=== PATIENT | female | born 1975 | race Caucasian/White ===

== ENCOUNTER → 2016-08-29 19:37 | Outpatient (CLI) | payer OTHER | END | disposition home or self-care (01) | LOC: D.SLEEP 19:37 | DX: G47.33 Obstructive sleep apnea (adult) (pediatric) (principal) ==

== ENCOUNTER → 2016-09-20 20:12 | Outpatient (CLI) | payer OTHER | END | disposition home or self-care (01) | LOC: D.SLEEP 09-06 20:00 | DX: G47.33 Obstructive sleep apnea (adult) (pediatric) (principal) ==

== ENCOUNTER → 2017-01-23 12:12 | Outpatient (CLI) | payer MEDICAID ==
--- NOTE | 2017-01-23 13:47 | NUR ---
Nutrition education for bariatric surgery: S: Pt states she has been heavy all her adult life. Her lowest weight as an adult was ~200# and her highest weight eas 330#. Pt has depression and uses food to cope with stress. Pts go to food is [place], chips, dip. Pt has 6 year old twin girls and wants to get healthy for them. Pt was just recently diagnosed with DMT2. Pt has been working out in her backyard above ground poor most days by running laps. Pt states her sister and [id number] had bariatric surgery ~6 months ago and she is watching their progress and learing about what to expect from surgery. O: 41 year old female Dx: Morbid obesity PMH: DMT2, HTN, depression Ht: 5'5" Wt: 286# IBW: 125# +/-10% BMI: 47.6 A: Pt appears to be very informed about what to expect after bariatric surgery. Pt has seen her sister and [id number]'s progress and knows it is not going to be easy. Reviewed pre/post of diet; discussed meal size; pouch stretching; no carbonation; no sweets, fried foods, alcohol; reviewed sample menus; supplements; protein intake; liquids between meals. Pt with good understanding of information provided. RDN feels pt is very informed about what to expect after surgery; RDN feels pt is ready to make the necessary lifestyle changes needed to be successful with long-term weight loss after surgery. P: Provide pt with printed diet information and RDN name and phone number. RDN will be available if needed. Thank you for the consult.
== END ==
LOC: D.FANS 12:12
DX: Z01.818 Encounter for other preprocedural examination (principal)

== ENCOUNTER → 2017-05-09 08:44 | Outpatient (CLI) | payer MEDICARE | END | disposition home or self-care (01) | LOC: D.RT 08:44 | DX: J18.9 Pneumonia, unspecified organism (principal) ==

== ENCOUNTER → 2017-06-21 13:01 | Outpatient (CLI) | payer MEDICARE ==
[~2017-06-21 13:01] MED LIST: BUSPAR10 MG PO; ELAVIL10 MG PO; GLUCOPHAGE500 MG PO; KLONOPIN0.5 MG PO; LAMICTAL100 MG PO; LISINOPRIL-HCTZ1 T13 PO; NEURONTIN 300300 MG PO; NORCO 7.5/325 T1 TA1 PO; PAROXETINE HCL10 MG PO; PHENERGAN25 M1 PO; ZOFRAN ODT4 MG/UDTAB PO
[2017-08-01 18:03] VITALS: BMI 48.6
== END | disposition home or self-care (01) ==
LOC: D.RAD 13:01
DX: E66.2 Morbid (severe) obesity with alveolar hypoventilation (principal)

== ENCOUNTER 2017-07-04 06:56 | Day surgery (SDC) | payer MEDICARE ==
[~2017-07-04] VITALS: Ht 165.1 cm; Wt 138.6 kg
[2017-07-04 07:19] LABS: HEMATOCRIT 38.5 % (36.0-48.0); HEMOGLOBIN 12.2 g/dL (12-16); MCH 27.4 pg (26.0-34.0); MCHC 31.7 g/dL (31.0-37.0); MCV 86.3 fL (80.0-100.0); RBC 4.46 10x6/uL (4.00-5.40); RDW 13.8 % (11.5-14.5); WBC 7.8 10x3/uL (4.8-10.8)
[2017-07-04] MEDS ORDERED: PAROXETINE HCL10 MG PO (07:26)
[2017-07-04] MEDS ORDERED: NEURONTIN 300300 MG PO (07:27)
[2017-07-04] MEDS ORDERED: KLONOPIN0.5 MG PO (07:27)
[2017-07-04] MEDS ORDERED: LISINOPRIL-HCTZ1 T13 PO (07:28)
[2017-07-04] MEDS ORDERED: GLUCOPHAGE500 MG PO (07:28)
[2017-07-04] MEDS ORDERED: BUSPAR10 MG PO (07:29)
[2017-07-04] MEDS ORDERED: LAMICTAL100 MG PO (07:29)
[2017-07-04] MEDS ORDERED: ELAVIL10 MG PO (07:29)
[2017-07-04 07:38] VITALS: BP 163/84; Ht 165.1 cm; Wt 138.6 kg
[2017-07-04 07:44] LABS: HCG URINE NEGATIVE (NEGATIVE)
[2017-07-04 08:00] LABS: CALC OSMOLALITY 280 mosm/kg (275-300); CALCIUM 8.6 mg/dL (8.5-10.1); CARBON DIOXIDE 28.6 mmol/L (21.0-32.0); CHLORIDE - SERUM 102 mmol/L (98-107); CREATININE - SERUM 0.7 mg/dL (0.6-1.3); GLUCOSE 133 mg/dL (74-106); POTASSIUM - SERUM 3.9 mmol/L (3.5-5.1); SODIUM 140 mmol/L (136-145); UREA NITROGEN 13 mg/dL (7-18); eGFR NON AFRICAN AMERICAN > 90 mL/min (90-120)
--- NOTE | 2017-07-05 07:21 | OP ---
PATIENT NAME: CASH MURPHY MEDICAL RECORD: [id number] :77 LOCATION:D.OPS ADMISSION DATE: SURGEON: MATEO GUTHRIE MD DATE OF OPERATION: 07/04/2017 SURGEON: Mateo Guthrie MD PREOPERATIVE DIAGNOSES: 1. Gastroesophageal reflux. 2. Morbid obesity. 3. Essential hypertension. 4. Obstructive sleep apnea. POSTOPERATIVE DIAGNOSES: 1. Gastroesophageal reflux. 2. Morbid obesity. 3. Essential hypertension. 4. Obstructive sleep apnea. PROCEDURE PERFORMED: Esophagogastroduodenoscopy with biopsy. ANESTHESIA: Total intravenous anesthesia. COMPLICATIONS: None. SPECIMENS: 1. Duodenum. 2. Antrum. 3. Stomach body. 4. Gastroesophageal junction. Case was contaminated. ESTIMATED BLOOD LOSS: Minimal. OPERATIVE COURSE: After consent was obtained, the patient taken to the endoscopy suite and placed in the supine position. A timeout was taken to confirm the correct patient and procedure, total intravenous anesthesia was given. A bite block was placed. Hurricaine spray was administered. The patient was placed in left lateral decubitus position. The scope was inserted through the bite block and passed posterior to the epiglottis and under direct endoscopic vision, it was advanced through the esophagus and the stomach. The stomach was insufflated. Scope was passed through the pylorus. The duodenum was inspected. The duodenum appeared within normal limits. Multiple biopsies were taken of the duodenum. The scope was withdrawn through the pylorus. There was some mild antritis noted. Multiple cold biopsies were taken in the antrum and prepyloric region. The stomach was inspected. There was some minimal gastritis noted. The scope was retroflexed. There was a small hiatal hernia noted. The scope was retracted through the GE junction and there was some grade I linear ulcerations to the esophagus with abnormality of the Z line consistent with mild esophagitis. Multiple biopsies were taken of the GE junction. The scope was reinserted into the stomach. The stomach was desufflated. The esophagus was examined upon withdrawal of the scope. There is no abnormality of the esophagus identified. The scope was removed and the procedure was terminated. At the end of procedure, all needle and instrument counts were OPERATIVE REPORT [id number] CASH MURPHY correct. No complications occurred. The patient was transferred to the recovery room in satisfactory condition. TRANSINT:[id number] Voice Confirmation ID: [id number] DOCUMENT ID: [id number] MATEO GUTHRIE MD at 0721 CC: [id number] DICTATION DATE: 07/04/17 1034 DIRECTORY ASSISTANCE OPERATOR: 07/04/[address] [facility] 07/04/17 [facility] [address] [place] [address]
== END 2017-07-04 11:50 | disposition home or self-care (01) ==
LOC: D.OPS 06:56
PROVIDERS: Anesthesiology; Surgery
DX: K21.0 Gastro-esophageal reflux disease with esophagitis (principal); K44.9 Diaphragmatic hernia without obstruction or gangrene; K29.60 Other gastritis without bleeding; E66.01 Morbid (severe) obesity due to excess calories; I10 Essential (primary) hypertension; G47.33 Obstructive sleep apnea (adult) (pediatric); Z01.812 Encounter for preprocedural laboratory examination; Z68.43 Body mass index [BMI] 50.0-59.9, adult

== ENCOUNTER 2017-08-01 05:22 | Inpatient (IN) | payer MEDICARE ==
[2017-07-31 08:30] LABS: HEMATOCRIT 36.2 % (36.0-48.0); HEMOGLOBIN 11.9 g/dL (12-16); MCH 27.8 pg (26.0-34.0); MCHC 32.9 g/dL (31.0-37.0); MCV 84.6 fL (80.0-100.0); MEAN PLATELET VOLUME 9.9 fL (7.4-10.4); RBC 4.28 10x6/uL (4.00-5.40); RDW 13.9 % (11.5-14.5); WBC 7.6 10x3/uL (4.8-10.8)
[2017-07-31 08:44] LABS: CALC OSMOLALITY 277 mosm/kg (275-300); CARBON DIOXIDE 29.7 mmol/L (21.0-32.0); CHLORIDE - SERUM 101 mmol/L (98-107); CREATININE - SERUM 0.7 mg/dL (0.6-1.3); GLUCOSE 140 mg/dL (74-106); POTASSIUM - SERUM 3.7 mmol/L (3.5-5.1); SODIUM 138 mmol/L (136-145); UREA NITROGEN 13 mg/dL (7-18); eGFR NON AFRICAN AMERICAN > 90 mL/min (90-120)
[~2017-08-01] VITALS: Ht 165.1 cm; Wt 132.7 kg
[~2017-08-01 05:22] MED LIST changes: -NORCO 7.5/325 T1 TA1 PO; -PHENERGAN25 M1 PO; -ZOFRAN ODT4 MG/UDTAB PO
[2017-08-01 12:16] VITALS: BP 127/84; BMI 49.5
[2017-08-01 12:21] LABS: HCG URINE NEGATIVE (NEGATIVE)
--- NOTE | 2017-08-01 16:24 | NUR ---
RECEIVED PATIENT FROM OR AND PATIENT STARTED IMMEDIATELY VOMITING. GAVE ZOFRAN 4MG IV IN PACU WITH NO RELIEF. CONSULTED ANESTHESIA. GIVEN VERBAL ORDERS TO GIVE PHENERGAN 12.5MG IN PACU. GIVEN VERBAL ORDERS PER TIKI PISANO CRNA AND DR THOMPSON TO REPEAT X1 IN PACU ONLY.
[2017-08-01 16:48] VITALS: BP 143/91
--- NOTE | 2017-08-01 16:48 | NUR ---
RECEIVED PATIENT TO ROOM 2233 VIA BED FROM THE RECOVERY ROOM. PATIENT IS RESTING WITH EYES CLOSED UPON ARRIVAL TO THE ROOM. FAMILY WITH PATIENT. VSS. OXYGEN SATURATION IS 97% ON 2L PER NC. LAP INCISIONS X6 NOTED TO PATIENT'S ABDOMEN WITH STERI STRIPS C/D/I. ORIENTED FAMILY TO THE ROOM. PATIENT AWAKENS TO VERBAL STIMULI. PATIENT MOANING LOUDLY WHEN AWAKE. ORIENTED PATIENT TO CALL LIGHT. WILL REVIEW PHYSICIAN'S ORDERS FOR PAIN MEDICINE. WILL MONITOR PATIENT.
[2017-08-01 18:03] VITALS: BP 143/91; Ht 165.1 cm; Wt 132.7 kg
--- NOTE | 2017-08-01 18:41 | NUR ---
PATIENT REQUEST SOMETHING TO DRINK. MEASURING CUP PROVIDED TO PATIENT. 30 ML OF WATER GIVEN TO PATIENT. CALL LIGHT IN PATIENT'S REACH. CARPET SEWER MORPHINE IN USE FOR PAIN CONTROL. WILL MONITOR PATIENT.
[2017-08-01 20:00] VITALS: BP 138/94
--- NOTE | 2017-08-01 20:49 | NUR ---
AWAKE,ALERT.NO COMPLAINTS VOICED. IV INFUSING TO RIGHT HAND WITHOUT REDNESS OR EDEMA NOTED. INSCISION SITES X6 TO ABD WITH STERI STRIPS INTACT. NO DRAINAGE NOTED. UP TO BATHROOM WITH ASSIST. TOLERATED WELL. CL IN REACH. FAMILY AT BEDSIDE.
[2017-08-02] VITALS: BP 112/70
--- NOTE | 2017-08-02 00:30 | NUR ---
UP WALKING IN ROOM. COMPLAINS OF NAUSEA. ZOFRAN GIVEN WITH EFFECTIVE RESULTS NOTED.
--- NOTE | 2017-08-02 04:42 | NUR ---
UP IN ROOM. COMPLAINTS OFF PAIN AND NAUSEA. MORPHINE BOLUS GIVEN, ZOFRAN GIVEN PER ORDERS WITH EFFECTIVE RESULTS NOTED. FAMILY REMAINS AT BEDSIDE.
[2017-08-02 06:35] LABS: BASOPHILS 0.1 % (0-2); EOSINOPHILS 0.6 % (0-7); HEMATOCRIT 33.6 % (36.0-48.0); HEMOGLOBIN 10.8 g/dL (12-16); IMMATURE GRANULOCYTES 0.2 % (0-5); LYMPHOCYTES 20.8 % (15-50); MCH 27.5 pg (26.0-34.0); MCHC 32.1 g/dL (31.0-37.0); MCV 85.5 fL (80.0-100.0); MEAN PLATELET VOLUME 10.2 fL (7.4-10.4); MONOCYTES 8.6 % (2-11); NEUTROPHILS 69.7 % (40-80); PLATELET COUNT 287 10x3/uL (130-400); RBC 3.93 10x6/uL (4.00-5.40)
[2017-08-02 06:49] LABS: ALBUMIN 2.6 g/dL (3.4-5.0); ALKALINE PHOSPHATASE 84 U/L (46-116); ALT (SGPT) 41 U/L (10-68); CALC OSMOLALITY 275 mosm/kg (275-300); CARBON DIOXIDE 28.9 mmol/L (21.0-32.0); CHLORIDE - SERUM 104 mmol/L (98-107); CREATININE - SERUM 0.6 mg/dL (0.6-1.3); GLUCOSE 151 mg/dL (74-106); POTASSIUM - SERUM 3.7 mmol/L (3.5-5.1); PROTEIN - SERUM 5.9 g/dL (6.4-8.2); SODIUM 137 mmol/L (136-145); UREA NITROGEN 10 mg/dL (7-18); eGFR NON AFRICAN AMERICAN > 90 mL/min (90-120)
[2017-08-02 06:52] VITALS: BP 127/68
--- NOTE | 2017-08-02 07:50 | NUR ---
REPORT RECIEVED ASSUMED CARE. PATIENT IN BED WITH IV INTACT. NO COMPLAINTS FAMILY AT BEDSIDE. CALL LIGHT WITHIN REACH.
[2017-08-02 09:45] VITALS: BP 129/71
--- NOTE | 2017-08-02 10:54 | NUR ---
NUTRITION MONITORING & EVAL SPOKE WITH PT RE: POST GASTRIC SLEEVE DIET. PT NON CONVERSIVE. FAMILY @ BEDSIDE. 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 NO QUESTIONS FOR RD AT THIS TIME. RD FOLLOWING
[2017-08-02 12:08] VITALS: BP 142/81
[2017-08-02] MEDS ORDERED: ZOFRAN ODT4 MG/UDTAB PO (12:57)
[2017-08-02] MEDS ORDERED: NORCO 7.5/325 T1 TA1 PO (12:57)
[2017-08-02] MEDS ORDERED: PHENERGAN25 M1 PO (12:58)
--- NOTE | 2017-08-02 18:00 | NUR ---
PATIENT RECIEVED DC INSTRUCTIONS. VERBALIZED UNDERSTANDING. NO QUESTIONS AT THIS TIME. PRESCRIPTIONS CALLED INTO [facility] [address] FOR NAUSEA MEDS. PAIN MED PRESCRIPTIONS GIVEN TO PATIENT.
== END 2017-08-02 19:32 | disposition home or self-care (01) | DRG 621 ==
LOC: D.SDCHOLD 05:22 → D.MS 05:22 → D.SDCHOLD 12:45 → D.MS 16:06
PROVIDERS: Anesthesiology; ADMIT Surgery
PROC: 0DB64Z3 Excision of Stomach, Percutaneous Endoscopic Approach, Vertical (ICD-10-PCS; principal; 2017-08-01 12:45)
DX: E66.01 Morbid (severe) obesity due to excess calories (principal); Z68.43 Body mass index [BMI] 50.0-59.9, adult; I10 Essential (primary) hypertension; K21.9 Gastro-esophageal reflux disease without esophagitis; G47.33 Obstructive sleep apnea (adult) (pediatric)

== ENCOUNTER → 2017-11-06 10:11 | Outpatient (CLI) | payer MEDICARE, MEDICAID ==
[2017-08-01 18:03] VITALS: BMI 48.6
[~2017-11-06 10:11] MED LIST changes: +NORCO 7.5/325 T1 TA1 PO; +PHENERGAN25 M1 PO; +ZOFRAN ODT4 MG/UDTAB PO
[2017-11-06 11:20] LABS: BASOPHILS 0.5 % (0-2); EOSINOPHILS 1.6 % (0-7); HEMATOCRIT 38.4 % (36.0-48.0); HEMOGLOBIN 12.6 g/dL (12-16); LYMPHOCYTES 37.9 % (15-50); MCH 27.6 pg (26.0-34.0); MCHC 32.8 g/dL (31.0-37.0); MONOCYTES 8.8 % (2-11); NEUTROPHILS 51.2 % (40-80); PLATELET COUNT 247 10x3/uL (130-400); RBC 4.57 10x6/uL (4.00-5.40); RDW 13.7 % (11.5-14.5); WBC 5.7 10x3/uL (4.8-10.8)
[2017-11-06 11:28] LABS: CREATININE - SERUM 0.6 mg/dL (0.6-1.3)
== END | disposition home or self-care (01) ==
LOC: D.LAB 10:11
PROVIDERS: Surgery
DX: Z01.812 Encounter for preprocedural laboratory examination (principal); Z00.00 Encounter for general adult medical examination without abnormal findings; K21.9 Gastro-esophageal reflux disease without esophagitis; I10 Essential (primary) hypertension

== ENCOUNTER → 2019-04-01 09:29 | Outpatient (CLI) | payer MEDICARE, MEDICAID ==
[2017-08-01 18:03] VITALS: BMI 48.6
[~2019-04-01 09:29] MED LIST changes: +LISINOPRIL-HCT1 EAC8 PO; +PROTONIX40 MG PO; +VIIBRYD40 MG PO
== END | disposition home or self-care (01) ==
LOC: D.RAD 09:29
PROVIDERS: ATTEND Surgery
DX: R11.10 Vomiting, unspecified (principal)

== ENCOUNTER 2019-04-02 06:33 | Day surgery (SDC) | payer MEDICARE, MEDICAID ==
[~2019-04-02] VITALS: Ht 165.1 cm; Wt 93.2 kg
[~2019-04-02 06:33] MED LIST changes: -LISINOPRIL-HCT1 EAC8 PO; -PROTONIX40 MG PO; -VIIBRYD40 MG PO
[2019-04-02 06:48] LABS: HEMATOCRIT 33.5 % (36.0-48.0); HEMOGLOBIN 11.3 g/dL (12-16); MCH 27.8 pg (26.0-34.0); MCHC 33.7 g/dL (31.0-37.0); MCV 82.5 fL (80.0-100.0); MEAN PLATELET VOLUME 11.1 fL (7.4-10.4); RBC 4.06 10x6/uL (4.00-5.40); RDW 12.9 % (11.5-14.5); WBC 4.7 10x3/uL (4.8-10.8)
[2019-04-02] MEDS ORDERED: LISINOPRIL-HCT1 EAC8 PO (07:24)
[2019-04-02] MEDS ORDERED: VIIBRYD40 MG PO (07:25)
[2019-04-02 07:33] VITALS: BP 102/68; Ht 165.1 cm; Wt 93.2 kg
[2019-04-02] MEDS ORDERED: PROTONIX40 MG PO (08:14)
--- NOTE | 2019-04-02 09:15 | NUR ---
IV OUT WITH TIP INTACT, DISCHARGE INSTRUCTIONS GIVEN WITH FOLLOW UP APPT 04/21/19 @ 0900.
== END 2019-04-02 09:15 | disposition home or self-care (01) ==
LOC: D.OPS 06:33
PROVIDERS: Anesthesiology; ATTEND Surgery
DX: R13.10 Dysphagia, unspecified (principal); Z98.84 Bariatric surgery status

== ENCOUNTER 2020-02-16 06:15 | Day surgery (SDC) | payer MEDICARE, MEDICAID ==
[2020-02-12 11:51] LABS: BASOPHILS 0.5 % (0-2); EOSINOPHILS 0.4 % (0-7); HEMATOCRIT 37.6 % (36.0-48.0); HEMOGLOBIN 11.9 g/dL (12-16); IMMATURE GRANULOCYTES 0.2 % (0-5); MCH 26.5 pg (26.0-34.0); MCHC 31.6 g/dL (31.0-37.0); MCV 83.7 fL (80.0-100.0); MEAN PLATELET VOLUME 11.4 fL (7.4-10.4); MONOCYTES 8.2 % (2-11); NEUTROPHILS 53.7 % (40-80); RBC 4.49 10x6/uL (4.00-5.40); RDW 13.6 % (11.5-14.5); WBC 5.6 10x3/uL (4.8-10.8)
[2020-02-12 11:59] LABS: UDS - AMPHET NEGATIVE QUAL (NEGATIVE); UDS - BARB NEGATIVE QUAL (NEGATIVE); UDS - BENZO NEGATIVE QUAL (NEGATIVE); UDS - COCAINE NEGATIVE QUAL (NEGATIVE); UDS - OPIATE NEGATIVE QUAL (NEGATIVE); UDS - PCP NEGATIVE QUAL (NEGATIVE); UDS - THC NEGATIVE QUAL (NEGATIVE)
[2020-02-12 12:21] LABS: PLATELET COUNT 356 10x3/uL (130-400)
[~2020-02-16] VITALS: Ht 165.1 cm; Wt 93.4 kg
--- NOTE | ~2020-02-16 | OP ---
PATIENT NAME: CASH MURPHY MEDICAL RECORD: [id number] :77 [facility] AD[facility] DATE: SURGEON: KIRSTEN SALCEDO MD DATE OF OPERATION: 02/16/2020 PREOPERATIVE DIAGNOSIS: Undesired fertility. POSTOPERATIVE DIAGNOSIS: Undesired fertility. PROCEDURE: Bilateral salpingectomy. SURGEON: Kirsten Salcedo MD ANESTHESIOLOGIST: Dr. Chavez. ANESTHETIC: General. FINDINGS: Unremarkable uterus, tubes, and ovaries bilaterally. SPECIMENS REMOVED: Tubes bilaterally. SPECIMEN DISPOSITION: Pathology. ESTIMATED BLOOD LOSS: Minimal. FLUIDS: 700 of lactated Ringer's. URINE OUTPUT: Quantity sufficient void prior to this procedure. COMPLICATIONS: None. DRAINS: None. INDICATIONS: The patient is a 44-year-old parous female with undesired fertility. Risks, benefits as well as limitations of this procedure to include the possibility of an ectopic gestation of to occur has been described to the patient. The patient understands the alternatives and wishes to proceed. DESCRIPTION OF PROCEDURE: After informed consent was assured, the patient was taken to the operating room where anesthetic was obtained. The patient was now prepped and draped in usual sterile fashion. A 5-mm port was placed at the umbilicus and the patient was in Trendelenburg position. An 11-mm port was placed 2 fingerbreadths above the symphysis to the right of midline. Another accessory ports were placed at 2 fingerbreadths medial and above the anterior superior iliac spine. Through the right lower quadrant port, a grasper was inserted and the right tube was elevated. Using a Thunderbeat coagulation cutter, the tube was serially compressed, coagulated, and and removed from its attachments to the mucous all things. This tube was removed from the abdomen. Attention was now directed to the left side. The left tube was elevated in a similar manner and again using the Thunderbeat coagulation cutter, the tube was compressed, coagulated, and from its attachments to the adnexa. Once both tubes removed from the abdomen, the pelvis was inspected and adequate hemostasis has been achieved. The pneumoperitoneum was now released and trocars removed. The skin was closed with a subcuticular stitch. Sponge, lap, needle counts were correct times 2. OPERATIVE REPORT [id number] CASH MURPHY TRANSINT:[id number] Voice Confirmation ID: [id number] DOCUMENT ID: [id number] KIRSTEN SALCEDO MD CC: [id number] DICTATION DATE: 02/16/20817 COMPLIANCE REVIEW OFFICER: 02/16/201912 [facility] 02/16/20 [place] [id number] [place] [id number]
[~2020-02-16 06:15] MED LIST changes: +LISINOPRIL-HCT1 EAC8 PO; +PROTONIX40 MG PO; +VIIBRYD40 MG PO
[2020-02-16 07:07] VITALS: BP 134/88; Ht 165.1 cm; Wt 93.4 kg
[2020-02-16] MEDS ORDERED: LISINOPRIL-HCT1 EAC8 PO (07:14)
[2020-02-16 07:20] LABS: HCG URINE NEGATIVE (NEGATIVE)
--- NOTE | 2020-02-16 10:08 | NUR ---
DC INSTRUCTIONS GIVEN TO PT/FAMILY. STATE UNDERSTANDIND. DC'D IV CATH FULLY INTACT. PT VOIDED
--- NOTE | 2020-02-16 10:22 | NUR ---
PT LEFT UNIT VIA WC AT 1022
== END 2020-02-16 10:22 | disposition home or self-care (01) ==
LOC: D.OPS 06:15 → D.PAN 08:15 → D.OPS 08:15
PROVIDERS: ATTEND Obstetrics & Gynecology
DX: Z30.2 Encounter for sterilization (principal); I10 Essential (primary) hypertension; K21.9 Gastro-esophageal reflux disease without esophagitis